=== PATIENT | female | born 1975 | race Caucasian/White ===

== ENCOUNTER → 2018-01-05 | Outpatient (CLI) | payer OTHER | LOC: COL.RAD 14:00 | DX: M50.31 Other cervical disc degeneration, high cervical region (principal); M50.20 Other cervical disc displacement, unspecified cervical region ==

== ENCOUNTER 2019-01-09 08:20 | Outpatient (RCR) | payer OTHER | END 2019-04-09 | disposition home or self-care (01) | LOC: WSOH | DX: S60.212A Contusion of left wrist, initial encounter (principal); Z90.49 Acquired absence of other specified parts of digestive tract; Z90.89 Acquired absence of other organs; Z98.51 Tubal ligation status; Z98.890 Other specified postprocedural states; Y99.0 Civilian activity done for income or pay ==

== ENCOUNTER → 2020-04-01 | Outpatient (CLI) | payer SELFPAY | LOC: COL.CARD 09:04 | DX: R55 Syncope and collapse (principal) ==

== ENCOUNTER → 2020-11-05 | Outpatient (CLI) | payer OTHER | LOC: COL.PUL 11:09 | DX: J45.909 Unspecified asthma, uncomplicated (principal); Z87.891 Personal history of nicotine dependence ==